=== PATIENT | male | born 1985 | race Caucasian/White ===

== ENCOUNTER 2021-12-25 12:15 | Outpatient (CLI) | payer OTHER ==
[2021-12-25] MEDS ORDERED: RisperiDONE 2 MG TABLET PO SCH (14:00)
[2021-12-25] MEDS ORDERED: TraZODone HCL 50 MG TABLET PO PRN (14:00)
[2021-12-25 14:21] LABS: GLUCOMETER DEV NAME(LOC) POC.BV
[2021-12-25] MEDS ORDERED: RisperiDONE 1 MG TABLET PO SCH (17:00)
[2021-12-25] MEDS: RisperiDONE 1 MG TABLET PO SCH ×2 (21:00→21:38)
[2021-12-25] MEDS ORDERED: MIRTAZAPINE 15 MG TABLET PO SCH ×2 (21:00)
== END 2021-12-26 10:50 | disposition home or self-care (01) ==
LOC: CSU 12:15
PROVIDERS: ATTEND Nurse Practitioner Psychiatric/Mental Health
DX: F43.20 Adjustment disorder, unspecified (principal); F20.9 Schizophrenia, unspecified
CPT/HCPCS: 90792; Z7610

== ENCOUNTER 2024-08-31 10:11 | Emergency (ER) | payer OTHER ==
[~2024-08-31] VITALS: Ht 190.5 cm; Wt 107.0 kg
[2024-08-31 10:50] VITALS: BP 135/84; PULSE 68; RESP 14; TEMP 98.9; O2SAT 100
== END 2024-08-31 14:43 | disposition home or self-care (01) ==
LOC: EMS 10:11
DX: T40.711A Poisoning by cannabis, accidental (unintentional), initial encounter (principal); R53.1 Weakness; Y92.89 Other specified places as the place of occurrence of the external cause
CPT/HCPCS: 99283; Z7502